=== PATIENT | female | born 1975 | race Caucasian/White ===

== ENCOUNTER 2017-04-02 11:24 | Emergency (ER) | payer OTHER ==
[2017-04-02 12:15] VITALS: BP 117/80; PULSE 92; TEMP 36.4; O2SAT 98
--- NOTE | 2017-04-02 12:22 | EMERGENCY ROOM VISIT NOTE ---
History First contact with patient: 11:37 Chief Complaint: ALLERGIC REACTION Stated Complaint: ALLERGY, RASH, ITCHY Nursing Triage Summary: Red raised rash for three days History of Present Illness The patient is a 41 year old female who presents to the Emergency Room with complaints of an itchy rash of her chest, back on the neck, arms and legs. The patient reports that her rash and itchiness started 3 days ago. The patient reports that she did start to use a new perfume around the same time. She has been using multiple quality skin moisturizers without relief of symptoms. The patient reports that she did use a hand lotion yesterday, and forgot to wash her hands before eating a sandwich. She noticed some generalized itchiness and swelling in the mouth. That has since resolved. Otherwise she denies eating any new foods or drinks. She has had no other recent upper respiratory infections or fever. She denies any pain. Review of Systems 10 system review was performed and was negative except for pertinent positives and negatives as indicated in history of present illness Past Medical/Surgical History Medical Problems: (1) No significant past medical history Surgical Problems: (1) No history of previous surgery Family History FH: cancer FH: diabetes mellitus FH: heart disease FH: hypertension FH: lung disease Social History Smoking Status: Never Smoker Alcohol Use: none Marital Status: single Housing Status: lives with family Occupation Status: employed Current/Historical Medications No Active Prescriptions or Reported Meds Physical Exam Vital Signs Date Time Temp Pulse Resp B/P (MAP) Pulse Ox O2 Delivery O2 Flow Rate FiO2 04/02/17 11:31 Room Air 04/02/17 11:27 36.4 92 20 117/80 98 Room Air Physical Exam CONSTITUTIONAL: Healthy and well nourished. Alert and oriented X 3 with positive affect. Patient appears in mild discomfort from pruritus. HEENT: Normocephalic, atraumatic. Pupils equal, round and reactive. Ears and nares are clear. No facial edema noted. OROPHARYNX: No evidence for angioedema, posterior pharyngeal erythema or tonsillitis. NECK: Full active range of motion without discomfort. RESPIRATORY: Clear to auscultation bilaterally with no wheezing, crackles, rhonchi or stridor. CARDIOVASCULAR: Regular rate and rhythm with no murmurs, rubs or gallops. GASTROINTESTINAL: Bowel sounds present in all quadrants. MUSCULOSKELETAL: Full range of motion of all joints without discomfort. INTEGUMENTARY: Examination shows a macropapular rash around the neck, upper chest and back. She also has a similar rash with excoriations on the volar forearms and legs. No vesicles, pustules, desquamation, petechiae or ecchymosis noted. NEUROLOGIC: No focal neurologic deficits noted. Medical Decision & Procedures ED Course Patient history and physical exam were performed. Nurse's notes were reviewed. Vital signs were reviewed and were normal. During patient interview, the patient initially pulled out a new perfume that she just started to use. She then started to pour out multitude of other topical skin creams from her possession. Based on clinical exam and history, I explained to the patient that she likely has a contact dermatitis from one of the skin care products or perfume that she is using. She was instructed to stop any recent new topical products that she has not used in the past without similar reaction. The patient reports that she is from [facility], and "likes heat". She reports that her bedroom is usually very warm at nighttime, and likes to take prolonged hot showers. I explained that her itchiness is likely from histamine release and the skin that is causing her itchiness. She is most itchy at nighttime under several covers, and shortly after showering. She was encouraged to take an antihistamine such as Claritin for the daytime, and Benadryl at night. The patient reports that she has taken Benadryl in the past, which has helped with a similar rash in the past. The patient was encouraged to follow-up with dermatology if her rash persists. Return to the emergency department for any developing fever or other significant symptoms. The patient was happy with plan of care, voice understanding of all discharge instructions, and denied any pain at the time of discharge. Medical Decision Blood Pressure Screening Patient's blood pressure: Normal blood pressure Impression Primary Impression: Contact dermatitis Departure Information Dispostion Home / Self-Care Prescriptions No Active Prescriptions or Reported Meds Referrals No Doctor, Assigned (PCP) Alex Lin MD Forms HOME CARE DOCUMENTATION FORM, IMPORTANT VISIT INFORMATION Patient Instructions [facility] Additional Instructions Your rash is likely being caused by a reaction to topical products you have recently started to use. Avoid any new topical products that you have not used in the past. Intermittently apply an ice pack or cool compress to worse areas of itching. Suggest taking an [id number] antihistamine such as Claritin (nondrowsy) or Benadryl (will cause drowsiness). Avoid hot showers and try to keep cool. Heat increases histamine release in the skin, which worsens itching. Follow-up with dermatology (Dr. Lin) as needed for further management. Problem Qualifiers Primary Impression: Contact dermatitis Contact dermatitis type: irritant Contact dermatitis trigger: cosmetics Qualified Codes: L24.3 - Irritant contact dermatitis due to cosmetics
== END 2017-04-02 12:15 | disposition home or self-care (01) ==
LOC: EDUNIT# 11:24 → C.EDB 11:29 → C.EDD 12:15
DX: L24.3 Irritant contact dermatitis due to cosmetics (principal); Z83.3 Family history of diabetes mellitus; Z82.49 Family history of ischemic heart disease and other diseases of the circulatory system